=== PATIENT | male | born 1955 | race Caucasian/White ===

== ENCOUNTER → 2017-08-14 | Outpatient (CLI) | payer BC ==
--- NOTE | 2017-08-14 13:29 | PCVCIMAG ---
APPROVED REPORT Exam: Stress Echocardiogram Indication: ABN EKG, elevated blood pressure, HLP Patient Location: Echo lab Stress Nurse: Carrie Osorio RN Status: routine Ht: 5 ft 11 in HR: 69 bpm BP: 118/82 mmHg Rhythm: RBBB Procedure The patient underwent an Exercise Stress Test using the Donny Protocol. Blood pressure, heart rate, and EKG were monitored. An Echocardiogram was performed by motion picture camera lens technician in four stages in quad fashion. At peak stress, four selected images were obtained and placed side by side with resting images for comparison. Stress Test Details Stress Test: Exercise stress testing was performed using a Donny protocol. HR Resting HR: 69 bpmMax Heart Rate (APMHR): 156 bpm Max HR Achieved: 151 bpmTarget HR (85% APMHR): 132 bpm % of APMHR: 96 Recovery HR: 91 bpm HR response to stress: Normal HR response to stress BP Resting BP: 118/82 mmHg Max BP: 156/74 mmHg Recovery BP: 140/70 mmHg ECG Resting ECG: RBBB with rare isolated PVC Stress ECG: RBBB ST Change: Normal Arrhythmia: occasional isolated PVC Recovery ECG: Sinus Rhythm, RBBB Recovery Arrhythmia: None Clinical Reason for Termination: Maximal effort, Dyspnea Stress Symptoms: Dyspnea Exercise duration: 12 min 42 sec Highest Stage Achieved: Stage 5: 5.0 mph at 18% grade. Exercise capacity: 15.9 METs Overall Exercise Capacity for Age: Normal Scale: Active Angina Score: None Pre-Stress Echo The resting Echocardiogram showed normal left ventricular contractility with an estimated Ejection Fraction of about >55%. Normal wall motion in all segments on baseline images. Post-Stress Echo The stress Echocardiogram showed normal left ventricular contractility with an estimated Ejection Fraction of about 65%. Normal augmentation of wall motion in all segments on post stress images. Clinical No clinical or ECG evidence for ischemia. Conclusion Clinical Response: Non-ischemic Exercise Capacity: Superior Stress ECG Response: Non-ischemic Stress Echo Images: Non-ischemic The left ventricle is normal in size and wall thickness in both the rest and stress images. Other Information Study Quality: Adequate <Conclusion> The left ventricle is normal in size and wall thickness in both the rest and stress images.
== END | disposition home or self-care (01) ==
LOC: PCVCIMAG 10:18
PROVIDERS: ATTEND Internal Medicine Cardiovascular Disease
DX: R03.0 Elevated blood-pressure reading, without diagnosis of hypertension (principal); E78.5 Hyperlipidemia, unspecified; R94.31 Abnormal electrocardiogram [ECG] [EKG]
CPT/HCPCS: 93005; 93325; 93351